=== PATIENT | male | born 1965 | race Caucasian/White ===

== ENCOUNTER → 2020-10-19 | Outpatient (CLI) | payer OTHER ==
--- NOTE | 2020-10-20 10:19 | REP ---
INDICATION: M25.511 PAIN IN RIGHT SHOULDER COMPARISON: None. TECHNIQUE: Internal rotation, external rotation, and Y view. FINDINGS: No acute fracture or dislocation. The acromioclavicular and glenohumeral joints are intact. No periarticular calcifications or significant overt degenerative changes are appreciated. Sub acromial space is normal. Surrounding soft tissues are unremarkable. IMPRESSION: Normal right shoulder radiographs. If the patient remains symptomatic consider MRI for further investigation. <Electronically signed by Dino Garrido > 10/20/20 1018
== END ==
LOC: M CLY 14:57
PROVIDERS: ATTEND Family Medicine
DX: M25.511 Pain in right shoulder (principal)